=== PATIENT | male | born 1960 | race Caucasian/White ===

== ENCOUNTER 2018-10-02 14:33 | Emergency (ER) | payer OTHER ==
[~2018-10-02] VITALS: Ht 172.7 cm; Wt 77.3 kg
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
[2018-10-02 15:24] VITALS: Ht 172.7 cm; Wt 77.3 kg
[2018-10-02] MEDS ORDERED: ONDANSETRON 4 MG INJ IV ONE (15:30)
[2018-10-02] MEDS ORDERED: HYDROmorphONE 2 MG/ML SYG IV ONE (15:30)
[2018-10-02] MEDS ORDERED: HYDR-3980 PO (18:55)
[2018-10-02] MEDS ORDERED: METH500T PO (18:55)
[2018-10-02] MEDS ORDERED: IBUP800T48 PO (18:55)
[2018-10-02] MEDS ORDERED: HYDROmorphONE 1 MG/ML SYG IV STA (19:01)
[2018-10-02] MEDS ORDERED: ONDANSETRON 4 MG INJ IV STA (19:01)
[2018-10-02] MEDS ORDERED: HYDROCODONE/APAP (10/325) TAB PO ONE (22:30)
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
[2018-10-03] MEDS ORDERED: morphine 4 MG/ML VIAL IV STA (02:58)
[2018-10-03 07:00] VITALS: BP 151/85; PULSE 74; RESP 18
== END 2018-10-03 14:38 | disposition home or self-care (01) ==
LOC: E/R 14:33
DX: S32.001A Stable burst fracture of unspecified lumbar vertebra, initial encounter for closed fracture (principal); W18.40XA Slipping, tripping and stumbling without falling, unspecified, initial encounter; Y92.9 Unspecified place or not applicable
CPT/HCPCS: 72131; 72148; 96374; 96375; 96376; J1170; J2270; J2405; Z7502; Z7610

== ENCOUNTER 2018-10-15 18:46 | Emergency (ER) | payer SELFPAY ==
[~2018-10-15] VITALS: Ht 172.7 cm; Wt 63.6 kg
[~2018-10-15 18:46] MED LIST: HYDR-3980 PO; IBUP800T48 PO; METH500T PO
[2018-10-15 18:48] VITALS: BP 139/79; PULSE 107; RESP 18; Ht 172.7 cm; Wt 63.6 kg
== END 2018-10-15 19:12 | disposition left against medical advice (07) ==
LOC: E/R 18:46
DX: Z53.21 Procedure and treatment not carried out due to patient leaving prior to being seen by health care provider (principal)

== ENCOUNTER 2018-10-16 02:41 | Inpatient (IN) | payer OTHER ==
[~2018-10-16] VITALS: Ht 172.7 cm; Wt 65.5 kg
[2018-10-16] MEDS ORDERED: ONDANSETRON 4 MG INJ IV STA (03:11)
[2018-10-16] MEDS ORDERED: SOD CHLORIDE 0.9% 1,000 ML IV STA (03:11)
[2018-10-16] MEDS ORDERED: HYDROmorphONE 1 MG/ML SYG IV STA (03:11)
[2018-10-16] MEDS: METOPROLOL 5 MG INJ IV SCH ×3 (04:30→04:40)
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
[2018-10-16 07:51] VITALS: BP 198/99; PULSE 79; RESP 16
[2018-10-16 08:00] VITALS: BMI 22.5
[2018-10-16] MEDS: hydrALAzine 20 MG INJ IV PRN ×3 (08:25→17:32)
[2018-10-16] MEDS ORDERED: HYDROCODONE/APAP (10/325) TAB PO PRN (08:30)
[2018-10-16] MEDS ORDERED: ONDANSETRON 4 MG INJ IV PRN ×2 (08:30→16:30)
[2018-10-16] MEDS ORDERED: NACL 0.9% 3 ML SYG IV SCH (08:30)
[2018-10-16] MEDS ORDERED: ACETAMINOPHEN 325 MG TAB PO PRN (08:30)
[2018-10-16] MEDS: HYDROmorphONE 1 MG/ML SYG IV PRN ×4 (08:32→20:10)
[2018-10-16] MEDS: HEPARIN 5,000 UNIT/1 ML VIAL SC SCH ×2 (09:00→20:14)
[2018-10-16] MEDS: METHOCARBAMOL 500 MG TAB PO SCH ×3 (09:40→22:05)
[2018-10-16] MEDS: CHLORDIAZEPOXIDE 25 MG CAP PO SCH ×3 (10:52→20:12)
[2018-10-16] MEDS: D5W-0.45 NACL + KCL 20 MEQ 1,000 ML IV SCH (10:54)
[2018-10-16] MEDS: MULTIVITAMINS 10 ML, THIAMINE 100 MG, FOLIC ACID 1 MG in SOD CHLORIDE 0.9% 1,000 ML IVPB SCH (11:03)
[2018-10-16 13:25] VITALS: BP 185/100; PULSE 79; RESP 18
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
[2018-10-16] MEDS ORDERED: LORAZEPAM 1 MG TAB PO PRN (15:00)
[2018-10-16] MEDS: AMLODIPINE 5 MG TAB PO SCH (15:22)
[2018-10-16] MEDS: LIDOCAINE 5% PATCH TD SCH (15:23)
[2018-10-16] MEDS: NICOTINE (21 MG/24 HR) PATCH TRANSDERM SCH (15:23)
[2018-10-16] MEDS ORDERED: PENDING SANTYL ORDER FOR WOUND CARE XX PRN (16:00)
[2018-10-16 17:15] VITALS: Ht 172.7 cm; Wt 65.5 kg
[2018-10-16 17:48] VITALS: BP 169/87; PULSE 82; RESP 18
[2018-10-16] MEDS ORDERED: HYDROmorphONE 1 MG/ML SYG IV ONE (18:30)
[2018-10-16 20:06] VITALS: BP 122/69; PULSE 90; RESP 18
[2018-10-17] MEDS: HYDROmorphONE 1 MG/ML SYG IV PRN ×2 (00:04→04:04)
[2018-10-17] MEDS: D5W-0.45 NACL + KCL 20 MEQ 1,000 ML IV SCH ×2 (00:08→12:40)
[2018-10-17 02:00] VITALS: BP 119/72; PULSE 81; RESP 19
[2018-10-17] MEDS: METHOCARBAMOL 500 MG TAB PO SCH ×3 (06:45→21:09)
--- NOTE | 2018-10-17 07:16 | CONS ---
Assessment/Plan Assessment/Plan Assessment/Plan (Daily) Status post mechanical fall resulting burst fracture Right below the knee amputation History of right lower extremity phantom pain, now resolved Excessive alcohol consumption Multiple traumatic injuries Patient is primarily admitted for pain management and to be placed. I will strongly recommend against the use of any short-acting opioids either now or at discharge. Patient extremely high risk of opioid addiction possible overdose especially with the degree of alcohol consumption he admits to daily. Will change to gabapentin switch from IV Dilaudid PO off any short-acting opioids. Consultation Date/Type/Reason Admit Date/Time Date/Time of Note DATE: 10/17/18 TIME: 07:05 Hx of Present Illness 58-year-old homeless patient who has a complicated pain management history. First of all patient is a admitted chronic alcohol and is homeless. Patient sustained a L1 burst fracture after a mechanical fall approximate five weeks prior to this hospitalization. Patient also has a past medical history of right below the knee amputation secondary to trauma within the last two years. Patient had been seen by neurosurgery and conservative care was suggested at that time no surgical intervention. Patient describes his pain as a knowing lower back discomfort without radiation into his lower extremity. Rates of pain 10 over 10 when he drinks heavily he states he passes out to alleviate his pain. He denies any warning signs, it is positional with increasing pain when he is a bright at rest he still has pain 5/10. Denies nausea vomiting fevers chills cough. Current pain medication that he states is inadequate to control his pain which includes low dose of [place] and as needed doses of IV Dilaudid. Patient is negotiating for opioids. He states he has no past medical history of illicit drug use is not been incarcerated in the past denies any other serious major medical problems. Once again he admits that he drinks to excess to alleviate his pain to the point of passing out. Denies any radiculopathy into his lower extremities denies phantom pain below the right lower extremity although initially post injury and after the right below the knee amputation he did have a brief period of time of phantom pain which subsequently disappeared. He has been treated with gabapentin in the past. But he has been no other opioids within the last at least six month period of time. Constitutional: No no complaints, No improved, No chills, No diaphoresis, No disoriented, No febrile, No poor po, No requiring IVF, No requiring O2, No other Eyes: No no complaints, No pain, No discharge, No redness, No visual change, No other ENT: No no complaints, No bleeding, No pain, No congestion, No discharge, No dysphagia, No sore throat, No other Respiratory: No no complaints, No pain, No cough, No pleuritic pain, No shortness of breath, No sputum, No wheezing, No other Cardiovascular: No no complaints, No chest pain, No edema, No lightheadedness, No orthopenea, No palpitations, No paroxysmal nocturnal dyspnea, No other Gastrointestinal: No no complaints, No pain, No blood, No constipation, No decreased appetite, No diarrhea, No flatus, No nausea, No passing stool, No vomiting, No other Genitourinary: No no complaints, No bleeding, No dysuria, No discharge, No flank pain, No hematuria, No other Skin: No no complaints, No bruising, No erythema, No laceration, No pruritis, No rash, No skin lesions, No other Neurologic: No no complaints, No confusion, No dizziness, No focal-weakness, No headache, No syncope, No seizure, No other Endocrine: No no complaints, No polyuria, No polydypsia, No dry skin, No temp intolerance, No other Lymphatic: No no complaints, No adenopathy, No tender nodes, No lymphadema, No other Psychological: anxiety, depression Past Medical History Home Meds Active Scripts Ibuprofen* (Motrin*) 800 Mg Tab, 800 MG PO Q6H PRN for PAIN AND OR ELEVATED TEMP, #30 TAB Prov:SHIRA CASTILLO DO 10/02/18 Methocarbamol* (Robaxin*) 500 Mg Tab, 500 MG PO Q8, #20 TAB Prov:SHIRA CASTILLO DO 10/02/18 Hydrocodone/Acetaminophen ([place] 10-325 Tablet) 1 Each Tablet, 1 TAB PO Q6H PRN for PAIN, #9 TAB Prov:SHIRA CASTILLO DO 10/02/18 Medications Current Medications Hydralazine HCl (Apresoline) 10 mg Q4H PRN IV hypertension Last administered on 10/16/18at 17:32; Admin Dose 10 MG; Start 10/16/18 at 08:30 Hydromorphone HCl (Dilaudid) 1 mg Q4H PRN IV SEVERE PAIN LEVEL 7-10 Last administered on 10/17/18at 04:04; Admin Dose 1 MG; Start 10/16/18 at 08:30 IV Flush (NS 3 ml) 3 ml PER PROTOCOL IV ; Start 10/16/18 at 08:30 Heparin Sodium (Porcine) (Heparin (5000 Units/1ml)) 5,000 unit Q12 SC Last administered on 10/16/18at 20:14; Admin Dose 5,000 UNIT; Start 10/16/18 at 09:00 Methocarbamol (Robaxin) 500 mg Q8 PO Last administered on 10/17/18at 06:45; Admin Dose 500 MG; Start 10/16/18 at 08:30 Multivitamins 10 ml/Thiamine HCl 100 mg/Folic Acid 1 mg/Sodium Chloride 1,011.2 ml @ 125 mls/ hr DAILY@09 IVPB Last administered on 10/16/18at 11:03; Admin Dose 125 MLS/HR; Start 10/16/18 at 11:00; Stop 10/20/18 at 10:59 Chlordiazepoxide (Librium) 50 mg TID PO Last administered on 10/16/18at 20:12; Admin Dose 50 MG; Start 10/16/18 at 10:00; Stop 10/18/18 at 09:59 Potassium Chloride/Dextrose/ Sod Cl 1,000 ml @ 75 mls/hr [id number] IV Last administered on 10/17/18at 00:08; Admin Dose 75 MLS/HR; Start 10/16/18 at 11:00 Nicotine (Nicoderm 21 Mg/ 24hr) 1 patch DAILY TRANSDERM Last administered on 10/16/18at 15:23; Admin Dose 1 PATCH; Start 10/16/18 at 14:30 Ondansetron HCl (Zofran Inj) 4 mg Q4H PRN IV NAUSEA/VOMITING; Start 10/16/18 at 16:30 Amlodipine Besylate (Norvasc) 5 mg DAILY PO Last administered on 10/16/18at 15:22; Admin Dose 5 MG; Start 10/16/18 at 15:00 Lorazepam (Ativan) 1 mg Q6H PRN PO ANXIETY; Start 10/16/18 at 15:00 Lidocaine (Lidoderm) 1 patch DAILY TD Last administered on 10/16/18at 15:23; Admin Dose 1 PATCH; Start 10/16/18 at 15:00 Miscellaneous Information (Pending [facility] Order For Wound Care) This patient luke... PRN PRN XX WOUND CARE; Start 10/16/18 at 16:00 Clonidine (Catapres) 0.1 mg Q6H PRN PO hypertension Last administered on 10/16/18at 16:13; Admin Dose 0.1 MG; Start 10/16/18 at 16:30 Allergies: Coded Allergies: No Known Allergy (Unverified , 10/16/18) Past Surgical History Past Surgical Hx: other (Status post right below the knee amputation) Social History Alcohol Use: heavy Smoking Status: Current every day smoker Drug Use: none Exam/Review of Systems Exam Vitals Vital Signs Date Temp Pulse Resp B/P (MAP) Pulse Ox O2 O2 Flow FiO2 Time Delivery Rate 10/17/18 97.6 81 19 119/72 94 02:00 (88) 10/16/18 Room Air 20:06 Intake and Output 10/16/18 10/16/18 10/17/18 1414:59 22:59 06:59 IntakeIntake Total 700 ml 961.2 ml OutputOutput Total 1075 ml BalanceBalance -1075 ml 700 ml 961.2 ml Constitutional: alert, oriented, well developed Psych: anxiety Head: normocephalic, atraumatic Eyes: nl conjunctiva, EOMI, nl lids, nl sclera, PERRL ENMT: nl external ears & nose, nl lips & teeth, nl nasal mucosa & septum Neck: supple, non-tender Respiratory: clear to auscultation, normal air movement Cardiovascular: regular rate and rhythm, nl pulses Gastrointestinal: soft, nl liver, spleen, non-tender Extremities: other 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, nl mental status, nl speech, nl strength Results Result Diagram: 10/17/1830 10/16/18 0336 Results 24hrs Laboratory Tests Test 10/17/18 05:30 White Blood Count 6.2 # Red Blood Count 3.54 #L Hemoglobin 10.2 #L Hematocrit 31.9 L Mean Corpuscular Volume 90.1 Mean Corpuscular Hemoglobin 28.8 L Mean Corpuscular Hemoglobin Concent 32.0 Red Cell Distribution Width 16.9 H Platelet Count 436 #H Mean Platelet Volume 8.9 Immature Granulocytes % 0.500 H Neutrophils % 66.9 Lymphocytes % 18.7 Monocytes % 6.6 Eosinophils % 6.0 Basophils % 1.3 Nucleated Red Blood Cells % 0.0 Immature Granulocytes # 0.030 Neutrophils # 4.2 Lymphocytes # 1.2 Monocytes # 0.4 Eosinophils # 0.4 Basophils # 0.1 Nucleated Red Blood Cells # 0.0 Medications Medication Current Medications Hydralazine HCl (Apresoline) 10 mg Q4H PRN IV hypertension Last administered on 10/16/18 17:32; Admin Dose 10 MG; Start 10/16/18 at 08:30 Hydromorphone HCl (Dilaudid) 1 mg Q4H PRN IV SEVERE PAIN LEVEL 7-10 Last administered on 10/17/18 04:04; Admin Dose 1 MG; Start 10/16/18 at 08:30 IV Flush (NS 3 ml) 3 ml PER PROTOCOL IV ; Start 10/16/18 at 08:30 Heparin Sodium (Porcine) (Heparin (5000 Units/1ml)) 5,000 unit Q12 SC Last administered on 10/16/18at 20:14; Admin Dose 5,000 UNIT; Start 10/16/18 at 09:00 Methocarbamol (Robaxin) 500 mg Q8 PO Last administered on 10/17/18at 06:45; Admin Dose 500 MG; Start 10/16/18 at 08:30 Multivitamins 10 ml/Thiamine HCl 100 mg/Folic Acid 1 mg/Sodium Chloride 1,011.2 ml @ 125 mls/ hr DAILY@09 IVPB Last administered on 10/16/18 11:03; Admin Dose 125 MLS/HR; Start 10/16/18 at 11:00; Stop 10/20/18 at 10:59 Chlordiazepoxide (Librium) 50 mg TID PO Last administered on 10/16/18 20:12; Admin Dose 50 MG; Start 10/16/18 at 10:00; Stop 10/18/18 at 09:59 Potassium Chloride/Dextrose/ Sod Cl 1,000 ml @ 75 mls/hr [id number] IV Last administered on 10/17/18 00:08; Admin Dose 75 MLS/HR; Start 10/16/18 at 11:00 Nicotine (Nicoderm 21 Mg/ 24hr) 1 patch DAILY TRANSDERM Last administered on 10/16/18at 15:23; Admin Dose 1 PATCH; Start 10/16/18 at 14:30 Ondansetron HCl (Zofran Inj) 4 mg Q4H PRN IV NAUSEA/VOMITING; Start 10/16/18 at 16:30 Amlodipine Besylate (Norvasc) 5 mg DAILY PO Last administered on 10/16/18at 15:22; Admin Dose 5 MG; Start 10/16/18 at 15:00 Lorazepam (Ativan) 1 mg Q6H PRN PO ANXIETY; Start 10/16/18 at 15:00 Lidocaine (Lidoderm) 1 patch DAILY TD Last administered on 10/16/18at 15:23; Admin Dose 1 PATCH; Start 10/16/18 at 15:00 [facility] This patient luke... PRN PRN XX WOUND CARE; Start 10/16/18 at 16:00 Clonidine (Catapres) 0.1 mg Q6H PRN PO hypertension Last administered on 10/16/18at 16:13; Admin Dose 0.1 MG; Start 10/16/18 at 16:30 CHRISTIE CHAMBERS Oct 17, 2018 07:15
[2018-10-17 08:01] VITALS: BP 165/91; PULSE 80
[2018-10-17] MEDS: HYDROmorphONE 2 MG TAB PO PRN ×3 (08:19→17:16)
[2018-10-17] MEDS: CHLORDIAZEPOXIDE 25 MG CAP PO SCH ×3 (08:20→21:10)
[2018-10-17] MEDS: AMLODIPINE 5 MG TAB PO SCH ×2 (08:20→21:10)
[2018-10-17] MEDS: LIDOCAINE 5% PATCH TD SCH (08:21)
[2018-10-17] MEDS: NICOTINE (21 MG/24 HR) PATCH TRANSDERM SCH (08:21)
[2018-10-17] MEDS: MULTIVITAMINS 10 ML, THIAMINE 100 MG, FOLIC ACID 1 MG in SOD CHLORIDE 0.9% 1,000 ML IVPB SCH ×2 (08:34→16:58)
[2018-10-17] MEDS: HEPARIN 5,000 UNIT/1 ML VIAL SC SCH ×2 (08:38→21:18)
[2018-10-17] MEDS ORDERED: POTASSIUM CHLORIDE (SR) 20 MEQ TAB PO STA (12:16)
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
[2018-10-17 20:16] VITALS: BP 169/93; PULSE 82; RESP 20
[2018-10-17] MEDS ORDERED: KETOROLAC 30 MG INJ IV ONE (21:02)
[2018-10-18 01:41] VITALS: BP 165/86; PULSE 74; RESP 18
[2018-10-18] MEDS: D5W-0.45 NACL + KCL 20 MEQ 1,000 ML IV SCH ×2 (01:42→15:02)
[2018-10-18] MEDS: HYDROmorphONE 2 MG TAB PO PRN ×5 (01:45→20:09)
[2018-10-18] MEDS: METHOCARBAMOL 500 MG TAB PO SCH ×3 (05:47→22:32)
[2018-10-18 07:54] VITALS: BP 161/97; PULSE 71; RESP 18
--- NOTE | 2018-10-18 08:30 | CONS ---
Assessment/Plan Assessment/Plan Assessment/Plan (Daily) Status post mechanical fall resulting burst fracture Right below the knee amputation History of right lower extremity phantom pain, now resolved Excessive alcohol consumption Multiple traumatic injuries refer to recommendations and not rx with high doses of opioids. Consultation Date/Type/Reason Admit Date/Time Oct 16, 2018 at 03:49 Initial Consult Date Date/Time of Note DATE: 10/18/18 TIME: 08:26 24 HR Interval Summary Free Text/Dictation Continues to negotiate for higher doses of opioids.He is high risk of major complications and would not rx opioid except under extrme conditions especially this is an old injury. Also suggedt not dc with opioids as pt is hi risk of deatth from opioids and alcohol consumption. Exam/Review of Systems Exam Vitals Vital Signs Date Temp Pulse Resp B/P (MAP) Pulse Ox O2 O2 Flow FiO2 Time Delivery Rate 10/18/18 98.0 71 18 161/97 96 Room Air 07:54 (118) Intake and Output 10/17/18 10/17/18 10/18/18 1515:00 23:00 07:00 IntakeIntake Total 550 ml 600 ml 1000 ml OutputOutput Total 675 ml 1150 ml BalanceBalance 550 ml -75 ml -150 ml Constitutional: alert, oriented, well developed Psych: anxiety Neck: supple, non-tender; No jvd, No bruits, No masses, No thyromegaly, No nuchal rigidity, No other Results Result Diagram: 10/18/18 0538 10/18/18 0538 Results 24hrs Laboratory Tests Test 10/18/18 05:38 White Blood Count 4.6 #L Red Blood Count 3.99 L Hemoglobin 11.2 L Hematocrit 36.3 L Mean Corpuscular Volume 91.0 Mean Corpuscular Hemoglobin 28.1 L Mean Corpuscular Hemoglobin Concent 30.9 L Red Cell Distribution Width 16.8 H Platelet Count 311 # Mean Platelet Volume 9.9 Immature Granulocytes % 0.400 Neutrophils % 65.2 Lymphocytes % 21.6 Monocytes % 6.1 Eosinophils % 5.8 Basophils % 0.9 Nucleated Red Blood Cells % 0.0 Immature Granulocytes # 0.020 Neutrophils # 3.0 Lymphocytes # 1.0 Monocytes # 0.3 Eosinophils # 0.3 Basophils # 0.0 Nucleated Red Blood Cells # 0.0 Sodium Level 139 Potassium Level 3.7 Chloride Level 110 Carbon Dioxide Level 24 Anion Gap 5 Blood Urea Nitrogen 11 Creatinine 0.60 L Est Glomerular Filtrat Rate mL/min > 60 Glucose Level 99 Calcium Level 8.2 L Medications Medication Current Medications Hydralazine HCl (Apresoline) 10 mg Q4H PRN IV hypertension Last administered on 10/16/18at 17:32; Admin Dose 10 MG; Start 10/16/18 at 08:30 IV Flush (NS 3 ml) 3 ml PER PROTOCOL IV ; Start 10/16/18 at 08:30 Heparin Sodium (Porcine) (Heparin (5000 Units/1ml)) 5,000 unit Q12 SC Last administered on 10/17/18 21:18; Admin Dose 5,000 UNIT; Start 10/16/18 at 09:00 Methocarbamol (Robaxin) 500 mg Q8 PO Last administered on 10/18/18at 05:47; Admin Dose 500 MG; Start 10/16/18 at 08:30 Multivitamins 10 ml/Thiamine HCl 100 mg/Folic Acid 1 mg/Sodium Chloride 1,011.2 ml @ 125 mls/ hr DAILY@09 IVPB Last administered on 10/17/18at 16:58; Admin Dose 125 MLS/HR; Start 10/16/18 at 11:00; Stop 10/20/18 at 10:59 Chlordiazepoxide (Librium) 50 mg TID PO Last administered on 10/17/18at 21:10; Admin Dose 50 MG; Start 10/16/18 at 10:00; Stop 10/18/18 at 09:59 Potassium Chloride/Dextrose/ Sod Cl 1,000 ml @ 75 mls/hr [id number] IV Last administered on 10/17/18at 12:40; Admin Dose 75 MLS/HR; Start 10/16/18 at 11:00 Nicotine (Nicoderm 21 Mg/ 24hr) 1 patch DAILY TRANSDERM Last administered on 10/17/18 08:21; Admin Dose 1 PATCH; Start 10/16/18 at 14:30 Ondansetron HCl (Zofran Inj) 4 mg Q4H PRN IV NAUSEA/VOMITING; Start 10/16/18 at 16:30 Lorazepam (Ativan) 1 mg Q6H PRN PO ANXIETY; Start 10/16/18 at 15:00 Lidocaine (Lidoderm) 1 patch DAILY TD Last administered on 10/17/18at 08:21; Admin Dose 1 PATCH; Start 10/16/18 at 15:00 Miscellaneous Information (Pending [facility] Order For Wound Care) This patient luke... PRN PRN XX WOUND CARE; Start 10/16/18 at 16:00 Clonidine (Catapres) 0.1 mg Q6H PRN PO hypertension Last administered on 9at 01:43; Admin Dose 0.1 MG; Start 10/16/18 at 16:30 Hydromorphone HCl (Dilaudid) 2 mg Q4H PRN PO SEVERE PAIN LEVEL 7-10 Last administered on 10/18/18at 05:47; Admin Dose 2 MG; Start 10/17/18 at 07:30 Amlodipine Besylate (Norvasc) 5 mg BID PO Last administered on 10/17/18at 21:10; Admin Dose 5 MG; Start 10/17/18 at 21:00 CHRISTIE CHAMBERS Oct 18, 2018 08:30
[2018-10-18] MEDS: MULTIVITAMINS 10 ML, THIAMINE 100 MG, FOLIC ACID 1 MG in SOD CHLORIDE 0.9% 1,000 ML IVPB SCH (09:04)
[2018-10-18] MEDS: LIDOCAINE 5% PATCH TD SCH (09:05)
[2018-10-18] MEDS: AMLODIPINE 5 MG TAB PO SCH ×2 (09:05→20:10)
[2018-10-18] MEDS: CHLORDIAZEPOXIDE 25 MG CAP PO SCH (09:05)
[2018-10-18] MEDS: NICOTINE (21 MG/24 HR) PATCH TRANSDERM SCH (09:05)
[2018-10-18] MEDS: HEPARIN 5,000 UNIT/1 ML VIAL SC SCH ×2 (09:06→20:10)
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
[2018-10-18] MEDS: LISINOPRIL 20 MG TAB PO SCH (12:58)
[2018-10-18] MEDS: MUPIROCIN 2% 22 GM OINT TOP SCH ×2 (12:58→20:09)
[2018-10-18 14:45] VITALS: BP 160/84; PULSE 80; RESP 18
[2018-10-18 19:52] VITALS: BP 157/87; PULSE 87; RESP 20
[2018-10-19] MEDS: HYDROmorphONE 2 MG TAB PO PRN ×6 (00:02→21:24)
[2018-10-19] MEDS: DIPHENHYDRAMINE 25 MG CAP PO ONE ×2 (00:30→05:17)
[2018-10-19 01:48] VITALS: BP 147/75; PULSE 86; RESP 18
[2018-10-19] MEDS: D5W-0.45 NACL + KCL 20 MEQ 1,000 ML IV SCH ×2 (04:22→17:42)
[2018-10-19] MEDS: METHOCARBAMOL 500 MG TAB PO SCH ×3 (05:07→21:24)
[2018-10-19 07:51] VITALS: BP 134/74; PULSE 74; RESP 18
[2018-10-19] MEDS: MULTIVITAMINS 10 ML, THIAMINE 100 MG, FOLIC ACID 1 MG in SOD CHLORIDE 0.9% 1,000 ML IVPB SCH ×2 (09:00→09:19)
[2018-10-19] MEDS: MUPIROCIN 2% 22 GM OINT TOP SCH ×2 (09:19→21:25)
[2018-10-19] MEDS: NICOTINE (21 MG/24 HR) PATCH TRANSDERM SCH (09:20)
[2018-10-19] MEDS: LIDOCAINE 5% PATCH TD SCH (09:20)
[2018-10-19] MEDS: LISINOPRIL 20 MG TAB PO SCH (09:21)
[2018-10-19] MEDS: AMLODIPINE 5 MG TAB PO SCH ×2 (09:22→21:25)
[2018-10-19] MEDS: HEPARIN 5,000 UNIT/1 ML VIAL SC SCH ×2 (09:23→21:28)
[2018-10-19 13:57] VITALS: BP 130/68; PULSE 72; RESP 18
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
[2018-10-19 20:00] VITALS: BP 133/75; PULSE 77; RESP 18
[2018-10-20] MEDS: HYDROmorphONE 2 MG TAB PO PRN ×6 (01:34→21:56)
[2018-10-20 02:00] VITALS: BP 149/79; PULSE 77; RESP 18
[2018-10-20] MEDS ORDERED: DIPHENHYDRAMINE 25 MG CAP ONE (02:26)
[2018-10-20] MEDS ORDERED: DIPHENHYDRAMINE 25 MG CAP PO ONE (02:30)
[2018-10-20] MEDS: METHOCARBAMOL 500 MG TAB PO SCH ×3 (05:34→20:54)
[2018-10-20] MEDS: D5W-0.45 NACL + KCL 20 MEQ 1,000 ML IV SCH ×2 (06:23→20:22)
[2018-10-20 08:00] VITALS: BP 158/98; PULSE 72; RESP 18
[2018-10-20] MEDS: LIDOCAINE 5% PATCH TD SCH (08:53)
[2018-10-20] MEDS: MUPIROCIN 2% 22 GM OINT TOP SCH ×2 (08:54→20:49)
[2018-10-20] MEDS: NICOTINE (21 MG/24 HR) PATCH TRANSDERM SCH (08:54)
[2018-10-20] MEDS: AMLODIPINE 5 MG TAB PO SCH ×2 (08:56→20:49)
[2018-10-20] MEDS: LISINOPRIL 20 MG TAB PO SCH (08:56)
[2018-10-20] MEDS: HEPARIN 5,000 UNIT/1 ML VIAL SC SCH ×2 (08:57→20:47)
[2018-10-20] MEDS: MULTIVITAMINS 10 ML, THIAMINE 100 MG, FOLIC ACID 1 MG in SOD CHLORIDE 0.9% 1,000 ML IVPB SCH (09:00)
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
[2018-10-20 13:50] VITALS: BP 138/85; PULSE 78; RESP 18
[2018-10-20 20:10] VITALS: BP 139/70; PULSE 79; RESP 18
[2018-10-21] MEDS: HYDROmorphONE 2 MG TAB PO PRN ×6 (02:03→22:21)
[2018-10-21 02:26] VITALS: BP 150/83; PULSE 71; RESP 18
[2018-10-21] MEDS ORDERED: DIPHENHYDRAMINE 25 MG CAP PO ONE ×2 (03:00→20:30)
[2018-10-21] MEDS: METHOCARBAMOL 500 MG TAB PO SCH ×3 (06:14→21:34)
[2018-10-21 07:43] VITALS: BP 137/72; PULSE 72; RESP 16
[2018-10-21] MEDS: MUPIROCIN 2% 22 GM OINT TOP SCH ×2 (09:24→21:34)
[2018-10-21] MEDS: LISINOPRIL 20 MG TAB PO SCH (09:24)
[2018-10-21] MEDS: AMLODIPINE 5 MG TAB PO SCH ×2 (09:24→21:34)
[2018-10-21] MEDS: HEPARIN 5,000 UNIT/1 ML VIAL SC SCH ×2 (09:25→21:33)
[2018-10-21] MEDS: NICOTINE (21 MG/24 HR) PATCH TRANSDERM SCH (09:29)
[2018-10-21] MEDS: LIDOCAINE 5% PATCH TD SCH (09:32)
[2018-10-21] MEDS: D5W-0.45 NACL + KCL 20 MEQ 1,000 ML IV SCH (09:42)
[2018-10-21 14:15] VITALS: BP 165/87; PULSE 75; RESP 18
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
[2018-10-21 20:00] VITALS: BP_SYST 134; BP_SYST 139; BP_SYST 158; BP_DIAS 62; BP_DIAS 72; BP_DIAS 82; PULSE 50; PULSE 72; PULSE 97; RESP 17; RESP 19
[2018-10-21] MEDS: DOCUSATE SODIUM 100 MG CAP PO PRN (23:09)
[2018-10-22 02:50] VITALS: BP 165/89; PULSE 71; RESP 19
[2018-10-22] MEDS: HYDROmorphONE 2 MG TAB PO PRN ×5 (02:50→23:35)
[2018-10-22 03:30] VITALS: BP 137/70; PULSE 70
[2018-10-22] MEDS: METHOCARBAMOL 500 MG TAB PO SCH ×3 (05:35→21:09)
[2018-10-22 07:41] VITALS: BP 149/85; PULSE 69; RESP 18
[2018-10-22] MEDS: LACTOBACILLUS RHAMNOSUS CAP PO SCH ×2 (08:16→21:10)
[2018-10-22] MEDS: LISINOPRIL 20 MG TAB PO SCH (08:16)
[2018-10-22] MEDS: AMLODIPINE 5 MG TAB PO SCH ×2 (08:17→21:08)
[2018-10-22] MEDS: HEPARIN 5,000 UNIT/1 ML VIAL SC SCH ×2 (08:20→21:09)
[2018-10-22] MEDS: MUPIROCIN 2% 22 GM OINT TOP SCH ×2 (08:21→21:11)
[2018-10-22] MEDS: NICOTINE (21 MG/24 HR) PATCH TRANSDERM SCH (08:23)
[2018-10-22] MEDS: LIDOCAINE 5% PATCH TD SCH (08:25)
[2018-10-22] MEDS: DOCUSATE SODIUM 100 MG CAP PO PRN (12:03)
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
[2018-10-22] MEDS: ACETAMINOPHEN 325 MG TAB PO SCH ×2 (13:48→18:55)
[2018-10-22] MEDS: morphine (ER) 15 MG TAB PO SCH ×2 (13:49→21:09)
[2018-10-22 14:14] VITALS: BP 135/74; PULSE 69; RESP 17
[2018-10-22 20:00] VITALS: BP 145/76; PULSE 58; RESP 18
[2018-10-23] MEDS ORDERED: traZODone 50 MG TAB PO ONE (01:00)
[2018-10-23] MEDS: NICOTINE POLACRILEX 2 MG GUM BUCCAL PRN ×2 (01:07→12:05)
[2018-10-23] MEDS: ACETAMINOPHEN 325 MG TAB PO SCH ×3 (01:07→12:05)
[2018-10-23] MEDS: NICOTINE (21 MG/24 HR) PATCH TRANSDERM SCH (01:08)
[2018-10-23 02:00] VITALS: BP 138/79; PULSE 59; RESP 17
[2018-10-23] MEDS: HYDROmorphONE 2 MG TAB PO PRN ×2 (06:15→13:03)
[2018-10-23] MEDS: METHOCARBAMOL 500 MG TAB PO SCH ×2 (06:15→13:03)
[2018-10-23 07:40] VITALS: BP 153/84; PULSE 63; RESP 18
[2018-10-23] MEDS: LACTOBACILLUS RHAMNOSUS CAP PO SCH (08:07)
[2018-10-23] MEDS: morphine (ER) 15 MG TAB PO SCH (08:09)
[2018-10-23] MEDS: LISINOPRIL 20 MG TAB PO SCH (08:09)
[2018-10-23] MEDS: AMLODIPINE 5 MG TAB PO SCH (08:10)
[2018-10-23] MEDS: LIDOCAINE 5% PATCH TD SCH (08:11)
[2018-10-23] MEDS: MUPIROCIN 2% 22 GM OINT TOP SCH (08:12)
[2018-10-23] MEDS: HEPARIN 5,000 UNIT/1 ML VIAL SC SCH (08:17)
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
[2018-10-23] MEDS ORDERED: LACT1CAP28 PO (13:12)
[2018-10-23] MEDS ORDERED: AMLO-145 PO (13:12)
[2018-10-23] MEDS ORDERED: DOCU-144 PO (13:12)
[2018-10-23] MEDS ORDERED: METH500T PO (13:12)
[2018-10-23] MEDS ORDERED: MUPI22OI2 TOP (13:12)
[2018-10-23] MEDS ORDERED: LISI-471 PO (13:12)
[2018-10-23] MEDS ORDERED: NICO-546 TRANSDERM (13:12)
[2018-10-23] MEDS ORDERED: MORP15TA3 PO (13:12)
[2018-10-23 14:33] VITALS: BP 124/76; PULSE 64; RESP 16
== END 2018-10-23 16:45 | disposition home or self-care (01) | DRG 552 ==
LOC: E/R 02:41 → MS1 03:49 → 5EC 17:00
PROVIDERS: ADMIT Internal Medicine; ATTEND Family Medicine
DX: S32.011A Stable burst fracture of first lumbar vertebra, initial encounter for closed fracture (principal); I10 Essential (primary) hypertension; I16.0 Hypertensive urgency; F17.200 Nicotine dependence, unspecified, uncomplicated; F10.229 Alcohol dependence with intoxication, unspecified; J44.9 Chronic obstructive pulmonary disease, unspecified; E87.6 Hypokalemia; R62.7 Adult failure to thrive; D64.9 Anemia, unspecified; Z99.3 Dependence on wheelchair; Z59.0 Homelessness; Z89.611 Acquired absence of right leg above knee; W01.0XXA Fall on same level from slipping, tripping and stumbling without subsequent striking against object, initial encounter
CPT/HCPCS: 70450; 72158; 80048; 80053; 83690; 83735; 84100; 85025; 85610; 85730; 87081; 97110; 97161; 97530; J0360; J1170; J1644; J1885; J2405; J3411; J3480; J7030; L0464